=== PATIENT | female | born 1975 | race Caucasian/White ===

== ENCOUNTER 2018-10-23 05:59 | Observation (INO) | payer OTHER ==
[~2018-10-23 05:59] MED LIST: Buffered Lidocaine 1% SYRIN* 1 ML/SYRINGE INTRADERM ONE
[2018-10-23] MEDS ORDERED: Lactated Ringers 1000 ML Bag* 1,000 ML IV SCH ×2 (06:00→10:00)
[2018-10-23] MEDS ORDERED: Famotidine IV* 10 MG/ML 2 ML (20 mg) IV ONE (06:00)
[2018-10-23] MEDS ORDERED: Bacitracin INJECTION* 50,000 UNITS ONE (06:35)
[2018-10-23] MEDS ORDERED: Thrombin 5,000 UNITS* 1 APPLIC KIT - topical use - TOPICAL ONE (06:35)
[2018-10-23] MEDS ORDERED: Lidocain 1% EPI 1:100,000 * 30 ML MDV ONE (06:35)
[2018-10-23] MEDS ORDERED: ceFAZolin 2 GM in NS PREMIX(*) 2 GM/100 ML BAG IVPB ONE (06:41)
[2018-10-23] MEDS ORDERED: Famotidine IV* 10 MG/ML 2 ML (20 mg) ONE (06:41)
[2018-10-23] MEDS ORDERED: ceFAZolin 1 GM in Dextrose (*) 1 GM/50 ML BAG IVPB ONE (06:41)
[2018-10-23] MEDS ORDERED: fentaNYL* 50 MCG/ML 2 ML VIAL (100 MCG VIAL) ONE ×2 (07:29→08:12)
[2018-10-23] MEDS ORDERED: Midazolam* 1 MG/ML 5 ML VIAL (5 MG) ONE (07:29)
[2018-10-23] MEDS ORDERED: Rocuronium* 10 MG/ML VIAL ONE (08:18)
[2018-10-23] MEDS ORDERED: Ondansetron INJ* 2 MG/ML VIAL ONE (08:30)
[2018-10-23] MEDS ORDERED: Dexamethasone IV* 4 MG/ML 1 ML (4 MG) ONE (08:30)
[2018-10-23] MEDS ORDERED: Succinylcholine* 20 MG/ML 10 ML VIAL ONE (08:30)
[2018-10-23] MEDS ORDERED: Phenylephrine 40 MCG/ML SYRINGE ONE (08:30)
[2018-10-23] MEDS ORDERED: Lidocaine 2% PF * 5 ML VIAL ONE (08:30)
[2018-10-23] MEDS ORDERED: Propofol* 10 MG/ML 20 ML BTL ONE (08:30)
[2018-10-23] MEDS ORDERED: Acetaminophen TAB* 325 MG PO PRN ×2 (09:02→09:31)
[2018-10-23] MEDS ORDERED: Naloxone* 0.4 MG/ML 1 ML VIAL IV PRN (09:02)
[2018-10-23] MEDS ORDERED: DiMENhydriNATE IV* 50 MG/ML VIAL IV PUSH PRN (09:02)
[2018-10-23] MEDS ORDERED: HYDROmorphone INJ1* 1 MG/ML SYRINGE ONE ×2 (09:13→09:46)
[2018-10-23] MEDS ORDERED: HYDROcodone/ACETAMIN 5-325 MG* 1 TAB PO PRN (09:31)
[2018-10-23] MEDS ORDERED: Ondansetron INJ* 2 MG/ML VIAL IV PRN (09:31)
[2018-10-23] MEDS ORDERED: Nicotine Inhaler* 10 MG AMP (NF) INH PRN (09:34)
[2018-10-23] MEDS ORDERED: Docusate CAP* 100 MG PO PRN (09:34)
[2018-10-23] MEDS ORDERED: Levalbuterol 0.63MG/3ML NEB* UNIT OF USE INH ONE ×2 (09:42→09:50)
[2018-10-23] MEDS ORDERED: Acetaminophen TAB* 325 MG ONE (09:47)
[2018-10-23] MEDS: HYDROmorphone INJ1* 1 MG/ML SYRINGE IV PRN ×5 (09:47→10:11)
[2018-10-23] MEDS ORDERED: Nicotine PATCH 21 MG/24 HR* PATCH TRANSDERM SCH (10:00)
[2018-10-23] MEDS ORDERED: oxyCODONE TAB* 5 MG TAB ONE ×2 (10:01→10:27)
[2018-10-23] MEDS: oxyCODONE TAB* 5 MG TAB PO PRN ×2 (10:02→10:28)
[2018-10-23] MEDS ORDERED: Cyclobenzaprine TAB* 10 MG PO PRN (10:45)
[2018-10-23 13:30] VITALS: BP 119/92
[2018-10-23] MEDS ORDERED: Mouth Piece, Nicotine* 1 EACH CARTRIDGE ONE (13:44)
[2018-10-23] MEDS ORDERED: Nicotine Patch Removal NOTE PATCH OFF SCH (21:00)
[2018-10-23] MEDS ORDERED: ALPRAZolam TAB* 0.25 MG PO SCH (21:00)
[2018-10-23] MEDS ORDERED: PARoxetine HCL TAB* 10 MG PO SCH (21:00)
[2018-10-23] MEDS ORDERED: busPIRone TAB* 10 MG PO SCH (21:00)
[2018-10-23] MEDS ORDERED: Famotidine TAB* 20 MG PO SCH (21:00)
[2018-10-24] MEDS ORDERED: Levothyroxine TAB* 137 MCG TAB PO SCH (06:00)
--- NOTE | 2018-10-27 22:38 | OP ---
DATE OF OPERATION: 10/23/18 - ROOM #353 DATE OF : 71. PRIMARY SURGEON: Francisco Treadwell MD. AUDIT OFFICER: SILVIO Tabor. ANESTHESIA: General. PRE-OP DIAGNOSIS: Herniated nucleus pulposus L4-5 on the left. POST-OP DIAGNOSIS: Herniated nucleus pulposus L4-5 on the left. OPERATIVE PROCEDURE: Lumbar microdiskectomy L4-5 on the left with microdissection. DESCRIPTION OF PROCEDURE: After satisfactory general anesthesia was obtained, the patient was placed on the operating table in the prone position with the chest supported on the Santhosh frame and the back slightly flexed. The lumbar region was then clipped, prepped and draped in a sterile manner for lumbar laminectomy, and a skin incision outlined from L4 to L5. This incision was infiltrated with 1% Xylocaine with epinephrine, after which it was turned down sharply to the level of the lumbar fascia and intraoperative x-rays were obtained verifying proper interspace localization, after which a partial hemilaminectomy was carried out by removing the inferior aspect of the L4 lamina and medial aspect of the facet complex with a combination of the Midas Raimundo drill and Kerrison rongeurs. This was carried superiorly until the attachment of the ligamentum flavum was taken down. Ligamentum was then removed with the Kerrison. At this point of the procedure, the operating microscope was brought into the field and the remainder of the procedure was done under microscopic visualization. Preoperative imaging studies had suggested the superior migration of the herniated disk fragment. Utilizing microdissection, epidural venous structures were coagulated and divided. Projecting superiorly over the L4 vertebral body were multiple fragments of extruded disk material compressing the L4 nerve root. Multiple fragments were removed from this region. Attention was then turned to the disk space itself, and the disk space was opened and cleared of any loose disk material utilizing pituitary forceps and curettes. Hemostasis was obtained with temporary Gelfoam, after which the L4 and L5 nerve roots were explored and were noted to be free in their course. After assuring adequate hemostasis, the wound was thoroughly irrigated, after which a piece of Gelfoam was placed over the laminectomy defect. The fascia was then reapproximated with 0 Vicryl suture. The subcutaneous tissue was closed with 3-0 Vicryl suture and the skin closed with skin clips. The estimated blood loss was less than 100 cc and the final sponge, padding, and needle counts were correct. The patient was taken to the recovery room, extubated, and in stable condition. [id number]/[facility] #: [id number] [facility] CENTERLupe
--- NOTE | 2018-11-21 21:32 | DS ---
DISCHARGE SUMMARY: DATE OF ADMISSION: 10/23/18 DATE OF DISCHARGE: 10/23/18 ATTENDING PHYSICIAN: Dr. Treadwell.* (DICTATED BY SILVIO OLIVARES) DISCHARGE DIAGNOSIS: Herniated nucleus pulposus, L4-5 left. SPECIAL PROCEDURES: Lumbar diskectomy, L4-5 left. HOSPITAL COURSE: This 43-year-old female was seen in office with left-sided lumbar radiculopathy for the previous 5 weeks. She is treated with a Medrol Dosepak without improvement. MRI of the lumbar spine showed a disk herniation at L4-5 with a free fragment to the left. Surgical intervention was discussed with the patient. She desired to proceed with this option. On the day of admission, she was taken to surgery where under general anesthesia, a lumbar diskectomy L4-5 in the left procedure was carried out. Postoperatively, she is feeling well and the left lower extremity symptoms resolved. She is ambulating independently. She is eating, drinking, and voiding without difficulty. Pain was well controlled with oral pain medication. She was discharged home to the care of her family on the day of surgery. Patient was stable at time of discharge. DISCHARGE INSTRUCTIONS: Discharge instructions including wound care and activity level were discussed with the patient and information on this was provided. She will be seen in the office to follow up with Dr. Treadwell in approximately 2 weeks. DISCHARGE MEDICATIONS: [place] 5/325 mg 2 tabs by mouth every 4 hours as needed for pain. SILVIO OLIVARES [id number]/[facility] #: [id number] [facility]ITALLupe
== END 2018-10-23 15:28 | disposition home or self-care (01) ==
LOC: OR 05:59 → INTOOBSV 11:59 → SSU 11:59
PROVIDERS: ADMIT Neurological Surgery; ATTEND Neurological Surgery
DX: M51.26 Other intervertebral disc displacement, lumbar region (principal); M51.24 Other intervertebral disc displacement, thoracic region; F17.210 Nicotine dependence, cigarettes, uncomplicated
CPT/HCPCS: 72100; 96374; A9270-GY; G0378; J0330; J0690; J1100; J1170; J2250; J2405; J2704; J3010